=== PATIENT | female | born 1970 | race Hispanic/Latino ===

== ENCOUNTER 2018-07-11 09:17 | Outpatient (CLI) | payer OTHER | END 2018-07-11 09:18 | disposition home or self-care (01) | LOC: BICMAMMO 09:17 | PROVIDERS: ATTEND Nurse Practitioner | DX: Z12.31 Encounter for screening mammogram for malignant neoplasm of breast (principal); Z80.3 Family history of malignant neoplasm of breast | CPT/HCPCS: 77063; 77067 ==

== ENCOUNTER 2018-08-25 17:59 | Emergency (ER) | payer OTHER ==
[~2018-08-25 17:59] MED LIST: ISOVUE-370 76%-LOCM 1 ML ONE
[2018-08-25 18:38] LABS: #Basophils 0.1 thou/uL (0.0-0.2); #Eosinphils 0.5 thou/uL (0.0-0.7); #Lymphocytes 2.5 thou/uL (1.20-3.40); #Monocytes 0.8 thou/uL (0.11-0.59); #Neutrophils 6.7 thou/uL (1.40-6.50); %Basophils 0.7 % (0.0-1.0); %Eosinophils 4.5 % (0.0-10.0); %Lymphocytes 23.7 % (21.0-51.0); %Monocytes 7.2 % (0.0-10.0); Hemoglobin 13.7 g/dL (12.0-16.0); Mean Corpuscular HGB CONC 32.8 g/dL (32.0-36.0); Mean Corpuscular Hemoglobin 27.6 pg (27.0-31.0); Mean Corpuscular Volume 84.2 fL (78.0-98.0); Mean Platelet Volume 7.7 fL (7.4-10.4); Platelet Count 317 thou/uL (130-400); RBC Distribution Width 12.4 % (11.5-14.5); Red Blood Cell (RBC) Count 4.96 mill/uL (4.20-5.40); White Blood Cell (WBC) Count 10.4 thou/uL (4.8-10.8)
[2018-08-25 18:46] LABS: Bilirubin Negative (Negative); Blood, Urine Small (Negative); Clarity CLEAR (Clear); Glucose, Urine (Dipstick) Negative (Negative); Leukocyte Negative (Negative); Nitrite Negative (Negative); Protein, Urine (Dipstick) Negative (Neg-Trace); Specific Gravity, Urine 1.011 (1.002-1.036); Urobilinogen 0.2 mg/dL (0.2-1.0); pH, Urine 5.5 (5.0-9.0)
[2018-08-25 18:48] LABS: Bacteria/HPF None Seen HPF (None Seen); Hyaline Casts/LPF 0-3 HYALINE CAST LPF (0-3 Hyaline); Pathc Cast-AUWi Flag 0.14 (0-2.49); Squamous Epithelial None Seen HPF (0-3); WBC/HPF None Seen HPF (0-3)
[2018-08-25] MEDS ORDERED: Morphine 4 MG/ML VIAL ONE (18:55)
--- NOTE | 2018-08-25 18:55 | CT ---
CT ABDOMEN AND PELVIS WITH CONTRAST: 08/25/18 HISTORY: Abdominal pain. COMPARISON: None. FINDINGS: Lung bases are clears. No pericardial effusion. There is a mass of the left adrenal gland which contains macroscopic fat suggesting an adrenal myelol ipoma. Prior cholecystectomy. Diffuse hepatic steatosis. Spleen and pancreas are unremarkable. Numerous phleboliths in the pelvis. There are phleboliths withi n the left gonadal veins. No renal enhancing mass. Mild diverticular disease of the sigmoid colon without active current inflammation. The appendix is v isualized and is normal. Partially calcified right external iliac lymph node. No retroperitoneal adenopathy. Advanced facet arthrosis lower lumbar spine. No acute osseous abnormality. IMPRESSION: 1. No acute inflammatory process within the abdomen or pelvis. 2. Diffuse hepatic steatosis. 3. Incidental note of left adrenal myelolipoma. POS: TIMUR
[2018-08-25] MEDS ORDERED: Ondansetron PF 4 MG/2 ML Vial ONE (18:56)
[2018-08-25 19:02] LABS: ALT (SGPT) 62 U/L (8-55); AST (SGOT) 40 U/L (5-34); Albumin 4.1 g/dL (3.5-5.0); Alkaline Phosphatase 115 U/L (40-150); Anion Gap 13 mmol/L (10-20); BUN (Urea Nitrogen) 11 mg/dL (7.0-18.7); Bilirubin, Total 0.4 mg/dL (0.2-1.2); Calc. Creatinine Clearance 0 mL/min (70-130); Calcium 9.3 mg/dL (7.8-10.44); Carbon Dioxide 27 mmol/L (22-29); Chloride 102 mmol/L (98-107); Estimated GFR-MDRD 88; Globulin 3.6 g/dL (2.4-3.5); Glucose 97 mg/dL (70-105); Lipase 60 U/L (8-78); Potassium 3.4 mmol/L (3.5-5.1); Protein, Total 7.7 g/dL (6.0-8.3); Sodium 139 mmol/L (136-145)
[2018-08-25] MEDS ORDERED: Pantoprazole 40 MG VIAL ONE (19:19)
[2018-08-25] MEDS ORDERED: Lidocaine Viscous Sol 2% 15 ml UD Cup ONE (19:19)
[2018-08-25] MEDS ORDERED: Mag-Al 1200 mg/1200 mg/30 ML UDCUP ONE (19:19)
== END 2018-08-25 19:47 | disposition home or self-care (01) ==
LOC: ERS 17:59
DX: D35.00 Benign neoplasm of unspecified adrenal gland (principal); K29.70 Gastritis, unspecified, without bleeding; D64.9 Anemia, unspecified
CPT/HCPCS: 36415; 74177; 80053; 81003; 81015; 83690; 84484; 85025; 86677; 93005; 96374; 96375; C9113; J2270; J2405; Q9966

== ENCOUNTER 2018-10-25 11:00 | Emergency (ER) | payer OTHER, SELFPAY ==
[2018-10-25] MEDS ORDERED: Meclizine HCl 25 MG TAB ONE (12:05)
[2018-10-25 12:22] LABS: #Basophils 0.1 thou/uL (0.0-0.2); #Eosinphils 0.1 thou/uL (0.0-0.7); #Lymphocytes 0.9 thou/uL (1.20-3.40); #Monocytes 0.3 thou/uL (0.11-0.59); %Basophils 0.6 % (0.0-1.0); %Eosinophils 0.7 % (0.0-10.0); %Lymphocytes 9.6 % (21.0-51.0); %Monocytes 3.1 % (0.0-10.0); %Neutrophils 85.9 % (42.0-75.0); Hemoglobin 14.4 g/dL (12.0-16.0); Mean Corpuscular HGB CONC 33.2 g/dL (32.0-36.0); Mean Corpuscular Hemoglobin 27.3 pg (27.0-31.0); Mean Corpuscular Volume 82.1 fL (78.0-98.0); Mean Platelet Volume 8.2 fL (7.4-10.4); Platelet Count 326 thou/uL (130-400); RBC Distribution Width 12.3 % (11.5-14.5); Red Blood Cell (RBC) Count 5.27 mill/uL (4.20-5.40); White Blood Cell (WBC) Count 9.4 thou/uL (4.8-10.8)
[2018-10-25 12:28] LABS: BHCG - Serum Negative (NEGATIVE); Pregs Control Background? CLEAR/WHITE (CLR/WHITE); Pregs Control Bar Appear? YES (CONTROL BAR)
[2018-10-25 12:43] LABS: ALT (SGPT) 33 U/L (8-55); AST (SGOT) 22 U/L (5-34); Albumin 4.4 g/dL (3.5-5.0); Alkaline Phosphatase 111 U/L (40-150); Anion Gap 16 mmol/L (10-20); BUN (Urea Nitrogen) 11 mg/dL (7.0-18.7); Bilirubin, Total 0.8 mg/dL (0.2-1.2); Calc. Creatinine Clearance 0 mL/min (70-130); Carbon Dioxide 25 mmol/L (22-29); Chloride 103 mmol/L (98-107); Estimated GFR-MDRD Greater than 90; Globulin 3.7 g/dL (2.4-3.5); Glucose 113 mg/dL (70-105); Potassium 3.7 mmol/L (3.5-5.1); Protein, Total 8.1 g/dL (6.0-8.3); Sodium 140 mmol/L (136-145)
[2018-10-25] MEDS ORDERED: Lorazepam 1 MG TAB ONE (13:23)
== END 2018-10-25 14:45 | disposition home or self-care (01) ==
LOC: ERS 11:00
DX: H81.399 Other peripheral vertigo, unspecified ear (principal); I10 Essential (primary) hypertension; D64.9 Anemia, unspecified
CPT/HCPCS: 36415; 80053; 84484; 84703; 85025; 93005; 96360; J8499

== ENCOUNTER 2018-12-25 08:06 | Outpatient (CLI) | payer BC ==
--- NOTE | 2018-12-25 08:29 | RAD ---
Right knee 2 views: 12/25/2018 COMPARISON: None HISTORY: Right knee pain FINDINGS: No fracture or dislocation. No radiopaque foreign body or subcutaneous gas. No knee joint e ffusion is noted on the lateral examination. IMPRESSION: No acute findings.
--- NOTE | 2018-12-25 08:29 | RAD ---
2 views of left knee: 12/25/2018 COMPARISON: None HISTORY: Left knee pain FINDINGS: No fracture or dislocation. No radiopaque foreign body or subcutaneous gas. Lateral examina tion demonstrates no knee joint effusion. IMPRESSION: No acute findings.
--- NOTE | 2018-12-25 08:30 | RAD ---
2 views left calcaneus: 12/25/2018 COMPARISON: None HISTORY: Left foot pain FINDINGS: No fracture or dislocation. No radiopaque foreign body or subcutaneous gas. There is promin ent enthesophyte formation at the origin of the plantar aponeurosis and the insertion of the Achilles tendon. IMPRESSION: No acute findings. Prominent calcaneal enthesophyte formation.
== END 2018-12-25 08:07 | disposition home or self-care (01) ==
LOC: BICRAD 08:06
PROVIDERS: ATTEND Specialist
DX: M25.562 Pain in left knee (principal); M25.561 Pain in right knee; M79.672 Pain in left foot; M77.32 Calcaneal spur, left foot

== ENCOUNTER 2019-03-30 22:46 | Inpatient (IN) | payer BC ==
[2019-03-30] MEDS ORDERED: Diltiazem 125 MG/25 ML ONE (23:15)
[2019-03-30] MEDS ORDERED: Enoxaparin Sodium 30 MG/0.3 ML SYRINGE ONE (23:39)
[2019-03-30] MEDS ORDERED: Enoxaparin Sodium 100 MG/ML SYRINGE ONE (23:39)
[2019-03-30 23:51] LABS: #Basophils 0.1 thou/uL (0.0-0.2); #Eosinphils 0.3 thou/uL (0.0-0.7); #Lymphocytes 2.8 thou/uL (1.20-3.40); #Monocytes 1.1 thou/uL (0.11-0.59); #Neutrophils 9.5 thou/uL (1.40-6.50); %Basophils 0.6 % (0.0-1.0); %Lymphocytes 20.4 % (21.0-51.0); %Monocytes 7.8 % (0.0-10.0); %Neutrophils 69.3 % (42.0-75.0); Hemoglobin 14.7 g/dL (12.0-16.0); Mean Corpuscular HGB CONC 33.9 g/dL (32.0-36.0); Mean Corpuscular Hemoglobin 28.6 pg (27.0-31.0); Mean Corpuscular Volume 84.4 fL (78.0-98.0); Mean Platelet Volume 7.8 fL (7.4-10.4); Platelet Count 362 thou/uL (130-400); RBC Distribution Width 12.9 % (11.5-14.5); Red Blood Cell (RBC) Count 5.12 mill/uL (4.20-5.40); White Blood Cell (WBC) Count 13.7 thou/uL (4.8-10.8)
--- NOTE | 2019-03-31 00:02 | RAD ---
XR Chest 1 View Portable HISTORY: Chest pain atrial fibrillation. COMPARISON: None. FINDINGS: Heart size and mediastinum are within normal limits. The lungs are clear of infiltrates. No significant bony findings. IMPRESSION: No active intrathoracic disease.
[2019-03-31 00:10] LABS: ALT (SGPT) 46 U/L (8-55); AST (SGOT) 29 U/L (5-34); Alkaline Phosphatase 115 U/L (40-150); Anion Gap 12 mmol/L (10-20); BUN (Urea Nitrogen) 9 mg/dL (7.0-18.7); Bilirubin, Total 0.4 mg/dL (0.2-1.2); Calc. Creatinine Clearance 0 mL/min (70-130); Calcium 9.3 mg/dL (7.8-10.44); Carbon Dioxide 30 mmol/L (22-29); Chloride 104 mmol/L (98-107); Estimated GFR-MDRD 85; Globulin 3.2 g/dL (2.4-3.5); Glucose 105 mg/dL (70-105); Protein, Total 7.2 g/dL (6.0-8.3); Sodium 142 mmol/L (136-145)
[2019-03-31 00:58] LABS: Acetaminophen Less than 6.0 mcg/mL (10.0-30.0); Alcohol Less than 10 mg/dL (Less than 10); Salicylate Less than 8.0 mg/dL (15.0-30.0)
[2019-03-31] MEDS ORDERED: Acetaminophen 325 MG TAB PO PRN (02:40)
[2019-03-31] MEDS ORDERED: Ondansetron ODT 4 MG TAB SL PRN (02:40)
[2019-03-31] MEDS ORDERED: Ondansetron PF 4 MG/2 ML Vial IVP PRN ×2 (02:40→11:47)
[2019-03-31] MEDS ORDERED: Diltiazem HCl 125 MG, Admixture Fee 1 EACH in Sodium Chloride 0.9% 100 ML IVPB SCH (02:45)
[2019-03-31 03:12] VITALS: BMI 41.5
[2019-03-31 03:30] LABS: Troponin I Less than 0.010 ng/mL (< 0.028)
[2019-03-31 06:45] LABS: Troponin I Less than 0.010 ng/mL (< 0.028)
[2019-03-31] MEDS ORDERED: Sodium Chloride 0.9% (PF) 10 ML VIAL FS PRN (06:58)
[2019-03-31] MEDS ORDERED: Morphine 2 MG/ML SYRINGE SLOW IVP PRN ×2 (06:59→11:47)
[2019-03-31] MEDS ORDERED: Nitroglycerin 2% Ointment 1 INCH/1 GM Packet TOP SCH (07:00)
[2019-03-31] MEDS ORDERED: Aspirin Chewable 81 MG TAB PO SCH (07:00)
[2019-03-31] MEDS: Acetaminophen 325 MG TAB PO SCH ×5 (07:29→23:34)
[2019-03-31] MEDS: Pantoprazole 40 MG VIAL IVP SCH ×2 (07:35→21:08)
--- NOTE | 2019-03-31 10:34 | HP ---
CHIEF COMPLAINT: Chest pain with new onset atrial fibrillation. HISTORY OF PRESENT ILLNESS: The patient was eating lunch when she had onset of chest palpitations and fluttering in her chest. Her father had atrial fibrillation and so she was familiar with what this might be. She tried lying down and it would be a little better, but then when she would sit up or stand up, the sensation would worsen. She went by her pharmacy and checked her blood pressure, it was noted to be just a little bit higher, but when she became lightheaded that is when she decided to go to [facility] to get evaluated. There, they thought that she was in a new onset atrial fibrillation and she was ultimately transferred to [facility] for further evaluation. She denies any recent illness or upper respiratory symptoms. She did take an Excedrin Migraine that morning and regular caffeine ingestion. No other elucidating factors can be determined at this time. No new medications. Once in the emergency room, at [facility], chest x-ray came back normal. Cardizem drip was begun. The patient already had been tried on Adenosine without improvement at [facility] dosages of 6 and 12 mg had been tried without conversion. She rates her chest pressure at a 5/10. It is not associated with nausea, vomiting, or diaphoresis, but she does feel short winded. She states it feels like something sitting on her chest. She does have some discomfort since arriving at [facility] left arm pain, and this has persisted, despite topical nitroglycerin, scheduled Tylenol, IV Protonix. She is placed in IMCU for further evaluation and Cardiology consultation. PAST MEDICAL HISTORY: Significant for obesity, hypertension, anemia, and chronic back pain. PAST SURGICAL HISTORY: Includes an ankle fracture repair, cholecystectomy back in 1987, hysterectomy in 2018. PSYCHIATRIC HISTORY: Negative. SOCIAL HISTORY: She denies alcohol or drug use. Does not smoke. REVIEW OF SYSTEMS: At the time of admission, CONSTITUTIONAL: Denies fever, chills, vomiting, diarrhea, or general malaise. HEENT: Denies drainage or sores from eyes, ears, nose, or throat. CARDIOVASCULAR: Reports chest pain and palpitations as well as lightheadedness. RESPIRATORY: Reports shortness of breath, but no cough. GI: Admits to nausea. No vomiting or diarrhea. : Denies dysuria, blood in urine or stool. MUSCULOSKELETAL: Has discomfort in her right arm. SKIN: Denies new rashes, lesions, or sweating. NEUROLOGIC: She has paresthesias in her feet, but denies any trouble with mentation, confusion. ENDOCRINE: Denies any swelling or bruising. ALLERGIES: THE PATIENT HAS NO KNOWN DRUG ALLERGIES. MEDICATIONS: On admission include benazepril-hydrochlorothiazide 20/12.5 taken once every morning and Celebrex 50 mg taken once a day. PHYSICAL EXAMINATION: VITAL SIGNS: On admission, blood pressure 112/86, pulse 150, respirations 19. Pain scale 5/10. Has a chest pressure discomfort. O2 saturation 98% on room air. GENERAL: This is an obese [place] female, alert, oriented, and cooperative. HEENT: Normocephalic, atraumatic. Pupils are equal, round, and reactive to light. Extraocular muscles are intact. TMs, nares, and pharynx are clear. NECK: Supple. Trachea midline. CHEST: Clear to auscultation. BREAST: Deferred. HEART: Regular rate and rhythm. Tachycardic. ABDOMEN: Obese, nontender. Unable to appreciate organomegaly. : Deferred. EXTREMITIES: Without clubbing, cyanosis, or edema. Normal range of motion present. SCDs in place. SKIN: Without rashes or lesions. NEUROLOGICAL: Cranial nerves are intact. Unable to test gait and cerebellar function at this time. Sensory exam is intact. Mental status is nonfocal. IMAGING STUDIES: EKG shows atrial fibrillation with RVR, no STEMI. QRS duration 86 milliseconds. The chest x-ray, no acute disease noted. LABORATORY DATA: The lab work on admission, WBCs 13.7, hemoglobin 14.7, hematocrit 43.2 with platelets at 362. Chemistry is sodium 142, potassium 4.0, chloride 104, CO2 of 30, BUN 9, creatinine 0.73 with a GFR of 85. Liver functions unremarkable. Troponin I is negative x3. Liver enzymes normal. Toxicology is negative. ASSESSMENT: 1. New onset atrial fibrillation with rapid ventricular response. 2. Chest pressure. 3. Hypertension. 4. Obesity. PLAN: The patient will be monitored in IMCU. Cardiology has been consulted concerning this patient and with unresponsive atrial fibrillation and chest pressure and hoping that invasive definitive evaluation will take place, serially re- evaluate the patient. In the meantime, we will continue symptomatic treatment with scheduled Tylenol, IV Protonix 40 q.12, topical nitroglycerin, and IV morphine should the patient worsen. She has also been scheduled for echocardiogram. Job ID: [id number] MTDD
[2019-03-31] MEDS ORDERED: Digoxin 0.5 MG/2 ML AMP ONE (11:41)
[2019-03-31] MEDS ORDERED: Digoxin 0.5 MG/2 ML AMP SLOW IVP SCH (11:45)
--- NOTE | 2019-03-31 12:09 | CON ---
DATE OF CONSULTATION: 03/31/2019 REASON FOR CONSULTATION: Atrial fibrillation. HISTORY OF PRESENT ILLNESS: Ms. Broussard is a very pleasant 49-year-old woman with past history of hypertension and likely obstructive sleep apnea, who recently presented with the heart flutters. She states she felt dizzy and lightheaded with palpitations. No other ameliorating exacerbating or precipitating factors present. She also had associated shortness of breath. PAST MEDICAL HISTORY: Obesity, hypertension, likely obstructive sleep apnea, cholecystectomy, and hysterectomy. SOCIAL HISTORY: No current tobacco or alcohol use. REVIEW OF SYSTEMS: A 10-point review of systems is reviewed as above, otherwise negative. PHYSICAL EXAMINATION: VITAL SIGNS: Blood pressure 101/70, pulse 104, and respirations 20. She is currently on a 12.5 mg IV Cardizem per hour. GENERAL: Patient is a pleasant female, who is in no acute distress. The patient appears their stated age. NEUROLOGIC: The patient is alert and oriented x3 with no focal neurologic deficits. HEENT: Sclerae without icterus. Mouth has moist mucous membranes with normal pallor. NECK: No JVD. Carotid upstroke brisk. No bruits bilaterally. LUNGS: Clear to auscultation with unlabored respirations. BACK: No scoliosis or kyphosis. CARDIAC: Irregularly irregular with normal S1 and S2. No S3 or S4 noted. No significant rubs, murmurs, thrills, or gallops noted throughout the precordium. PMI is not displaced. There is no parasternal heave. ABDOMEN: Soft, nontender, nondistended. No peritoneal signs present. No hepatosplenomegaly. No abnormal striae. EXTREMITIES: 2+ femoral and 2+ dorsalis pedis pulses. No cyanosis, clubbing, or edema. SKIN: No gross abnormalities. PERTINENT LABORATORY DATA: Hemoglobin 14.7. Creatinine 0.73. TSH not drawn. EKG shows atrial fibrillation. IMPRESSION: 1. New onset atrial fibrillation. 2. Hypertension. 3. Likely obstructive sleep apnea. RECOMMENDATIONS: The patient's CHADS-VASc score is 2. She does have hypertension and is female. Recommend anticoagulation therapy. We will add Eliquis 5 mg one p.o. b.i.d. I discussed continued rate control versus MADY with cardioversion versus rate control and cardioversion in 3 to 4 weeks. At this point, we will attempt at rate control. We will place her on a beta-raulito therapy in addition to p.o. Cardizem. Plan on MADY cardioversion tomorrow unless her status changes. I discussed the procedure in full detail with Ms. Broussard. Risks include not limited to the following: Damage to teeth, mouth, or back of throat, damage to esophagus, requiring emergent surgery, as well as reaction to medication. I discussed risks of cardioversion including burning of skin, stroke, failed cardioversion or need for repeat cardioversion, as well as temporary pacemaker. All questions were answered. Given the above, the patient agreed to proceed with above procedure. Job ID: [id number]
[2019-03-31 14:08] LABS: #Basophils 0.1 thou/uL (0.0-0.2); #Eosinphils 0.2 thou/uL (0.0-0.7); #Lymphocytes 2.3 thou/uL (1.20-3.40); #Monocytes 0.9 thou/uL (0.11-0.59); #Neutrophils 8.1 thou/uL (1.40-6.50); %Basophils 0.8 % (0.0-1.0); %Lymphocytes 19.9 % (21.0-51.0); %Neutrophils 69.3 % (42.0-75.0); Hemoglobin 14.2 g/dL (12.0-16.0); Mean Corpuscular HGB CONC 33.5 g/dL (32.0-36.0); Mean Corpuscular Hemoglobin 28.3 pg (27.0-31.0); Mean Corpuscular Volume 84.6 fL (78.0-98.0); Mean Platelet Volume 7.7 fL (7.4-10.4); Platelet Count 348 thou/uL (130-400); RBC Distribution Width 13.1 % (11.5-14.5); White Blood Cell (WBC) Count 11.7 thou/uL (4.8-10.8)
[2019-03-31] MEDS: Sodium Chloride 0.9% 1,000 ML IV SCH ×2 (14:14→22:50)
[2019-03-31 14:32] LABS: Anion Gap 9 mmol/L (10-20); BUN (Urea Nitrogen) 6 mg/dL (7.0-18.7); Calc. Creatinine Clearance 169 mL/min (70-130); Calcium 9.1 mg/dL (7.8-10.44); Carbon Dioxide 27 mmol/L (22-29); Chloride 105 mmol/L (98-107); Estimated GFR-MDRD 86; Glucose 91 mg/dL (70-105); Sodium 137 mmol/L (136-145)
[2019-03-31 16:44] LABS: Bacteria/HPF None Seen HPF (None Seen); Bilirubin Negative (Negative); Blood, Urine Trace (Negative); Clarity Turbid (Clear); Glucose, Urine (Dipstick) Normal (Negative); Leukocyte 25 Leu/uL (Negative); Nitrite Negative (Negative); Protein, Urine (Dipstick) Negative (Neg-Trace); Urobilinogen Normal mg/dL (Less than 2); WBC/HPF 0-3 HPF (0-3)
[2019-03-31] MEDS: Diltiazem HCl 125 MG, Admixture Fee 1 EACH in Sodium Chloride 0.9% 100 ML IVPB SCH (19:39)
[2019-04-01] MEDS: Diltiazem HCl 125 MG, Admixture Fee 1 EACH in Sodium Chloride 0.9% 100 ML IVPB SCH (04:03)
[2019-04-01] MEDS: Acetaminophen 325 MG TAB PO SCH ×5 (04:04→20:47)
[2019-04-01] MEDS: Sodium Chloride 0.9% 1,000 ML IV SCH ×3 (07:30→21:00)
[2019-04-01] MEDS ORDERED: Aspirin Chewable 81 MG TAB PO SCH (09:00)
[2019-04-01] MEDS ORDERED: PROPOFOL 40 ML ONE (09:10)
[2019-04-01] MEDS ORDERED: Apixaban 5 MG TAB PO SCH (09:45)
--- NOTE | 2019-04-01 10:12 | OP ---
DATE OF PROCEDURE: 04/01/2019 PREPROCEDURE DIAGNOSIS: Atrial fibrillation. POSTPROCEDURE DIAGNOSIS: Atrial fibrillation. PROCEDURE PERFORMED: MADY. DESCRIPTION OF PROCEDURE: The patient was consented for the procedure. The probe passed easily into the esophagus. Conscious sedation was performed with anesthesia. FINDINGS: Left atrial appendage was well visualized. Velocities approached 60 cm/second. No obvious mass or vegetation present. There is [id number] mitral regurgitation. IMPRESSION: No obvious thrombus present within left atrial appendage. Job ID: [id number]
--- NOTE | 2019-04-01 10:14 | OP ---
DATE OF PROCEDURE: 04/01/2019 PREPROCEDURE DIAGNOSIS: Atrial fibrillation. POSTPROCEDURE DIAGNOSIS: Sinus rhythm. PROCEDURE PERFORMED: Synchronized cardioversion x1 at 150 joules. DESCRIPTION OF PROCEDURE: The patient was consented for the procedure. Risks and benefits were both discussed. Conscious sedation was performed with propofol. MADY was performed, did not suggest thrombus. Synchronized cardioversion was performed x1 at 150 joules. IMPRESSION: Successful synchronized cardioversion. Job ID: [id number]
[2019-04-01] MEDS: Pantoprazole 40 MG VIAL IVP SCH ×2 (12:18→20:48)
--- NOTE | 2019-04-01 14:11 | PDOC.CPN ---
- Subjective Date: 04/01/19 Time: 14:10 - Objective Allergies/Adverse Reactions: Allergies Allergy/AdvReac Type Severity Reaction Status Date / Time acetaminophen AdvReac Intermediate Stomach Verified 03/31/19 15:44 [From Tylenol-Codeine] Ache codeine AdvReac Intermediate Stomach Verified 03/31/19 15:44 [From Tylenol-Codeine] Ache Visit Medications: Current Medications Acetaminophen (Tylenol) 650 mg PO Q4H [facility] Last Admin: 04/01/19 12:16 Dose: 650 mg Apixaban (Eliquis) 5 mg PO BID [facility] Aspirin (Aspirin Chewable) 81 mg PO DAILY [facility] Last Admin: 04/01/19 11:46 Dose: Not Given Diltiazem HCl (Cardizem Cd) 240 mg PO DAILY [facility] Hyoscyamine Sulfate (Levsin) 0.125 mg PO Q4H PRN PRN Reason: STOMACH PAIN Sodium Chloride (Normal Saline 0.9%) 1,000 mls @ 125 mls/hr IV .Q8H [facility] Last Admin: 04/01/19 12:17 Dose: 1,000 mls Diltiazem HCl 125 mg/Miscellaneous Medication 1 each/ Sodium Chloride 125 mls @ 0 mls/hr IVPB INF [facility]; Protocol Last Admin: 04/01/19 04:03 Dose: 125 mls Morphine Sulfate (Morphine) 2 mg SLOW IVP Q1H PRN PRN Reason: Chest Pain Last Admin: 03/31/19 14:21 Dose: 2 mg Ondansetron HCl (Zofran) 8 mg IVP Q6H PRN PRN Reason: Nausea/Vomiting Last Admin: 03/31/19 15:39 Dose: 8 mg Pantoprazole Sodium (Protonix) 40 mg IVP Q12HR [facility] Last Admin: 04/01/19 12:18 Dose: 40 mg Sodium Chloride (Flush - Normal Saline) 10 ml IVF Q12HR [facility] Last Admin: 04/01/19 11:47 Dose: Not Given Sodium Chloride (Flush - Normal Saline) 10 ml IVF PRN PRN PRN Reason: Saline Flush Vital Signs & Weight: Vital Signs Temp Pulse 04/01/19 12:17 115 H 04/01/19 11:14 97.0 F L 04/01/19 07:12 97.6 F Weight 249 lb 6.4 oz - Labs Result Diagrams: 03/31/19 14:02 03/31/19 14:02 Troponin/CKMB Troponin I Less than 0.010 ng/mL (< 0.028) 03/31/19 06:07 - Assessment/Plan Assessment/Plan: Afib DEE? Doing well s/p CV Recommend CCB and ACT for one month OK for DC today FU with me in 1-2 weeks Needs OP sleep study
[2019-04-01] MEDS: Apixaban 5 MG TAB PO SCH (20:47)
[2019-04-02] MEDS: Acetaminophen 325 MG TAB PO SCH ×3 (00:08→10:39)
[2019-04-02] MEDS: Sodium Chloride 0.9% 1,000 ML IV SCH (04:16)
--- NOTE | 2019-04-02 06:01 | PDOC.CPN ---
- Objective Allergies/Adverse Reactions: Allergies Allergy/AdvReac Type Severity Reaction Status Date / Time acetaminophen AdvReac Intermediate Stomach Verified 03/31/19 15:44 [From Tylenol-Codeine] Ache codeine AdvReac Intermediate Stomach Verified 03/31/19 15:44 [From Tylenol-Codeine] Ache Visit Medications: Current Medications Acetaminophen (Tylenol) 650 mg PO Q4H COUNTS [facility]CLUDE 234 BEDS AT THE [facility] Last Admin: 04/02/19 04:16 Dose: Not Given Apixaban (Eliquis) 5 mg PO BID COUNTS INCLUDE 234 BEDS AT THE [facility] Last Admin: 04/01/19 20:47 Dose: 5 mg Diltiazem HCl (Cardizem Cd) 240 mg PO DAILY COUNTS INCLUDE 234 BEDS AT THE [facility] Hyoscyamine Sulfate (Levsin) 0.125 mg PO Q4H PRN PRN Reason: STOMACH PAIN Sodium Chloride (Normal Saline 0.9%) 1,000 mls @ 125 mls/hr IV .Q8H COUNTS INCLUDE 234 BEDS AT THE [facility] Last Admin: 04/02/19 04:16 Dose: Not Given Diltiazem HCl 125 mg/Miscellaneous Medication 1 each/ Sodium Chloride 125 mls @ 0 mls/hr IVPB INF [facility]; Protocol Last Admin: 04/01/19 04:03 Dose: 125 mls Morphine Sulfate (Morphine) 2 mg SLOW IVP Q1H PRN PRN Reason: Chest Pain Last Admin: 03/31/19 14:21 Dose: 2 mg Ondansetron HCl (Zofran) 8 mg IVP Q6H PRN PRN Reason: Nausea/Vomiting Last Admin: 03/31/19 15:39 Dose: 8 mg Pantoprazole Sodium (Protonix) 40 mg IVP Q12HR COUNTS INCLUDE 234 BEDS AT THE [facility] Last Admin: 04/01/19 20:48 Dose: 40 mg Sodium Chloride (Flush - Normal Saline) 10 ml IVF Q12HR COUNTS INCLUDE 234 BEDS AT THE [facility] Last Admin: 04/01/19 21:00 Dose: 10 ml Sodium Chloride (Flush - Normal Saline) 10 ml IVF PRN PRN PRN Reason: Saline Flush Vital Signs & Weight: Vital Signs Temp 04/02/19 03:27 98.1 F 04/01/19 23:16 97.9 F 04/01/19 19:23 98.0 F Weight 249 lb 6.4 oz - Physical Exam General: alert & oriented x3, appears well, no apparent distress Neck: supple neck, midline trachea, no JVD/HJR, no masses, no bruit, no lymphadenopathy, no thromegaly Cardiac: regular rate and rhythm, regular rhythm Lungs: clear to auscultation Neuro: grossly intact Skin: clear - Labs Result Diagrams: 03/31/19 14:02 03/31/19 14:02 Troponin/CKMB Troponin I Less than 0.010 ng/mL (< 0.028) 03/31/19 06:07 - Assessment/Plan Assessment/Plan: Enrico Maher DEE Nicholequis On CCB PO Needs outpatient sleep study Fu with me in 1-2 weeks in office No other recommendations Ok for DC from CV standpoint
--- NOTE | 2019-04-02 07:21 | EKG ---
Test Reason : STAT Blood Pressure : / mmHG Vent. Rate : 087 BPM Atrial Rate : 100 BPM P-R Int : 000 ms QRS Dur : 086 ms QT Int : 384 ms P-R-T Axes : 000 070 057 degrees QTc Int : 462 ms Atrial fibrillation Abnormal ECG When compared with ECG of 25-OCT-2018 12:07, Atrial fibrillation has replaced Sinus rhythm Confirmed by DR. Luci CABRERA ([id number]) on 04/02/2019 7:20:52 AM Referred By: PHYLLIS Confirmed By:DR. Luci CABRERA
[2019-04-02] MEDS: Apixaban 5 MG TAB PO SCH (10:40)
[2019-04-02] MEDS: Pantoprazole 40 MG VIAL IVP SCH (10:41)
[2019-04-02 10:42] VITALS: BP 146/90
[2019-04-02 10:59] VITALS: TEMP 98.6
== END 2019-04-02 11:41 | disposition home or self-care (01) | DRG 309 ==
LOC: ERS 22:46 → IMCU/EMU 03-31 00:25
PROVIDERS: ADMIT Specialist; ATTEND Specialist
PROC: B24BZZ4 Ultrasonography of Heart with Aorta, Transesophageal (ICD-10-PCS; principal; 2019-04-01)
PROC: 5A2204Z Restoration of Cardiac Rhythm, Single (ICD-10-PCS; 2019-04-01)
DX: I48.91 Unspecified atrial fibrillation (principal); Z68.41 Body mass index [BMI] 40.0-44.9, adult; E66.9 Obesity, unspecified; I10 Essential (primary) hypertension; D64.9 Anemia, unspecified; G89.29 Other chronic pain; M54.9 Dorsalgia, unspecified; G47.33 Obstructive sleep apnea (adult) (pediatric); I34.0 Nonrheumatic mitral (valve) insufficiency; Z79.1 Long term (current) use of non-steroidal anti-inflammatories (NSAID); Z90.49 Acquired absence of other specified parts of digestive tract; Z90.710 Acquired absence of both cervix and uterus; Z79.01 Long term (current) use of anticoagulants; Z79.899 Other long term (current) drug therapy
CPT/HCPCS: 36415; 71045; 80048; 80053; 80307; 81001; 83880; 84443; 84484; 85025; 92960; 93005; 93010; 93306; 93312; 96365; 96366; 96372; C9113; J1160; J1650; J2270; J2405; J2704; J3490

== ENCOUNTER 2019-07-26 07:50 | Outpatient (CLI) | payer BC ==
--- NOTE | 2019-07-26 09:24 | MMO ---
Bilateral MAMMO Bilat Screen [facility]DI[facility]A. CLINICAL HISTORY: Patient is 49 years old and is seen for screening. The patient has no family history of breast cancer. The patient has no personal history of cancer. VIEWS: The views performed were: bilateral craniocaudal with tomosynthesis and bilateral mediolateral oblique with tomosynthesis. FILMS COMPARED: The present examination has been compared to prior imaging studies performed at [facility] on 03/06/2015, 04/14/2017 and 07/11/2018. This study has been interpreted with the assistance of computer-aided detection. MAMMOGRAM FINDINGS: There are scattered fibroglandular densities. There are no suspicious masses, suspicious calcifications, or new areas of architectural distortion. IMPRESSION: THERE IS NO MAMMOGRAPHIC EVIDENCE OF MALIGNANCY. A ROUTINE FOLLOW-UP MAMMOGRAM IN 1 YEAR IS RECOMMENDED. THE RESULTS OF THIS EXAM WERE SENT TO THE PATIENT. ACR BI-RADS Category 1 - Negative MAMMOGRAPHY NOTE: 1. A negative mammogram report should not delay a biopsy if a dominant of clinically suspicious mass is present. 2. Approximately 10% to 15% of breast cancers are not detected by mammography. 3. Adenosis and dense breasts may obscure an underlying neoplasm. Reported by: SARA CHAN MD Electonically Signed: [id number]
== END 2019-07-26 07:51 | disposition home or self-care (01) ==
LOC: BICMAMMO 07:50
PROVIDERS: ATTEND Specialist
DX: Z12.31 Encounter for screening mammogram for malignant neoplasm of breast (principal)
CPT/HCPCS: 77063; 77067

== ENCOUNTER 2020-10-09 08:02 | Outpatient (CLI) | payer BC | END 2020-10-09 08:03 | disposition home or self-care (01) | LOC: BICMAMMO 08:02 | PROVIDERS: ATTEND Specialist | DX: Z12.31 Encounter for screening mammogram for malignant neoplasm of breast (principal); M81.0 Age-related osteoporosis without current pathological fracture; Z80.3 Family history of malignant neoplasm of breast | CPT/HCPCS: 77063; 77067; 77080 ==

== ENCOUNTER 2022-02-18 06:20 | Emergency (ER) | payer BC ==
[2022-02-18] MEDS ORDERED: Acetaminophen 500 MG TAB ONE (06:43)
== END 2022-02-18 07:23 | disposition home or self-care (01) ==
LOC: ERS 06:20
DX: U07.1 COVID-19 (principal); I10 Essential (primary) hypertension; D64.9 Anemia, unspecified; I48.91 Unspecified atrial fibrillation; Z79.899 Other long term (current) drug therapy
CPT/HCPCS: 99283; U0003; U0005